=== PATIENT | male | born 1950 | race Caucasian/White ===

== ENCOUNTER 2016-05-11 07:52 | Emergency (ER) | payer MEDICARE ==
[~2016-05-11] VITALS: Ht 175.3 cm; Wt 104.3 kg
[2016-05-11 07:52] VITALS: BP 207/58; PULSE 59; RESP 20; TEMP 93.1; O2SAT 98
--- NOTE | 2016-05-11 07:52 | NUR ---
Placed in room 06 . Placed on cafeteria monitor, blood pressure machine and pulse oximeter. To gown for exam. Side rails up. Report given to Abundio.
--- NOTE | 2016-05-11 07:55 | NUR ---
ER at bedside examining patient.
--- NOTE | 2016-05-11 07:55 | NUR ---
BIB ACLS from home, c/o shortness of breath and chills. Pt has been to [facility] for treatment for bronchitis past 8 days. Pt cold, clammy. Per EMS was diaphoretic on scene. Taking clindamycin for MRSA wounds right foot. Pt has heel support right foot with ortho shoes states ambulatory at home. Wheezing noted bilat lungs. Denies chest pain, denies abd pain, abdomen distended no grimace with palpitation. Urinary incontince noted. Denies n/v/d
[2016-05-11] MEDS ORDERED: IPRATROPIUM BROM 0.5 MG/2.5 ML VIAL.NEB (ATROVENT) IH ONE (08:00)
[2016-05-11] MEDS ORDERED: ALBUTEROL SULFATE 0.083% 2.5 MG/3 ML VIAL.NEB IH ONE (08:00)
--- NOTE | 2016-05-11 08:05 | NUR ---
Pt moved to Room 2 for closer observation, call placed for Hoda hugger warming blankets, Lab at bedside.
--- NOTE | 2016-05-11 08:05 | NUR ---
93.1 rectal temp, pt placed on Hoda Warmer. Will continue to monitor
--- NOTE | 2016-05-11 08:10 | NUR ---
ABG drawn, Pt placed on breathing treatment via mask by RT
--- NOTE | 2016-05-11 08:15 | NUR ---
# 16 FR Sy catheter with use of sterile technique. Immediate return of 650 cc clear yellow urine noted. Bedside drainage bag placed below level of bladder. Urine sample collected and sent to lab. Pt tolerated procedure well. Patient unable to toilet self at this time.
[2016-05-11 08:22] LABS: BASOPHILS % (AUTO) 0.4 % (0.0-2.0); EOSINOPHILS # (AUTO) 0.2 K/uL (0.0-0.4); EOSINOPHILS % (AUTO) 2.8 % (0.0-4.0); HEMATOCRIT 35.6 % (36-54); HEMOGLOBIN 11.8 g/dL (14.0-18.0); LYMPHOCYTES # (AUTO) 1.5 K/uL (1.0-5.5); LYMPHOCYTES % (AUTO) 26.2 % (20.5-51.5); MEAN CORPUSCULAR HEMOGLOBIN 30 pg (27-31); MEAN CORPUSCULAR HGB CONC 33 % (32-36); MEAN CORPUSCULAR VOLUME 90 fL (79.0-98.0); MONOCYTES # (AUTO) 0.4 K/uL (0.0-1.0); MONOCYTES % (AUTO) 6.4 % (1.7-9.3); NEUTROPHILS # (AUTO) 3.5 K/uL (1.8-7.7); NEUTROPHILS % (AUTO) 64.2 % (40.0-70.0); PLATELET COUNT (AUTO) 321 K/uL (130-430); RED BLOOD CELL COUNT(AUTO) 3.97 MIL/uL (4.2-6.2); RED CELL DISTRIBUTION WIDTH 14.2 % (9.0-15.0); WHITE BLOOD COUNT (AUTO) 5.6 K/uL (4.8-10.8)
[2016-05-11 08:23] LABS: ABG TOTAL HEMOGLOBIN 12.1 G/dL (12.0-18.0); BLOOD GAS BASE EXCESS -5.4 mmol/L (-3.0-3.0); BLOOD GAS COHb% 0.2 % (0.5-1.5); BLOOD GAS PH 7.313 (7.350-7.450); BLOOD O2Hb% 94.5 % (94.0-97.0)
[2016-05-11 08:26] LABS: BILIRUBIN,URINE NEGATIVE (NEGATIVE); BLOOD, URINE NEGATIVE (NEGATIVE); CLARITY/URINE CLEAR (CLEAR); COLOR,URINE YELLOW (YELLOW); GLUCOSE,URINE NEGATIVE (NEGATIVE); KETONES,URINE NEGATIVE (NEGATIVE); LEUKOCYTE ESTERASE ,URINE NEGATIVE (NEGATIVE); NITRITE, URINE NEGATIVE (NEGATIVE); PH,URINE 5.5 (5.0-8.0); PROTEIN URINE 2+ (NEGATIVE); UROBILINOGEN,URINE 0.2 (0.2-1.0)
[2016-05-11 08:27] LABS: CALCIUM 9.4 mg/dL (8.4-11.0); CREATININE 2.9 mg/dL (0.55-1.30); POTASSIUM 3.6 mmol/L (3.5-5.1)
[2016-05-11 08:32] LABS: ALBUMIN 3.7 g/dL (3.4-4.8); TOTAL BILIRUBIN 0.3 mg/dL (0.0-1.0); TOTAL PROTEIN, SERUM 8.5 g/dL (6.4-8.3)
[2016-05-11 08:34] LABS: BACTERIA,URINE FEW /HPF (None Seen); FINE GRANULAR CASTS,URINE 0-3 /LPF (None Seen); RBC,URINE 0-3 /HPF (0-3)
--- NOTE | 2016-05-11 08:42 | NUR ---
PCxR taken at bedside
[2016-05-11] MEDS ORDERED: FURO-149 PO (08:48)
[2016-05-11] MEDS ORDERED: GLIP5TAB76 PO (08:48)
[2016-05-11] MEDS ORDERED: HYDR100T25 PO (08:48)
[2016-05-11] MEDS ORDERED: MIRT15TA7 PO (08:48)
[2016-05-11] MEDS ORDERED: LOSA25TA3 PO (08:48)
[2016-05-11] MEDS ORDERED: HYDR-1189 PO (08:48)
[2016-05-11] MEDS ORDERED: NPH,100V SUBCUT ×2 (08:48)
[2016-05-11] MEDS ORDERED: FURO-150 PO (08:48)
[2016-05-11] MEDS ORDERED: AMOX-426 PO (08:48)
[2016-05-11] MEDS ORDERED: SILV50CR TP (08:48)
[2016-05-11] MEDS ORDERED: CLIN-77 PO (08:48)
[2016-05-11] MEDS ORDERED: FINA5TAB3 PO (08:48)
[2016-05-11] MEDS ORDERED: BRI.2% RIGHT EYE (08:48)
[2016-05-11] MEDS ORDERED: ISOS60TA4 PO (08:48)
[2016-05-11] MEDS ORDERED: SIMV20TA2 PO (08:48)
[2016-05-11] MEDS ORDERED: CAT.2 PO (08:48)
[2016-05-11] MEDS ORDERED: CLOP75TA2 PO (08:48)
[2016-05-11] MEDS ORDERED: CALC0.258 PO (08:48)
[2016-05-11] MEDS ORDERED: BENZ100C67 PO (08:48)
[2016-05-11] MEDS ORDERED: DORZ10DR10 RIGHT EYE (08:48)
[2016-05-11] MEDS ORDERED: PRO40 PO (08:48)
[2016-05-11] MEDS ORDERED: TAMS0.4C96 PO (08:48)
[2016-05-11] MEDS ORDERED: SERT100T PO (08:48)
--- NOTE | 2016-05-11 08:48 | NUR ---
Medication reconciliation completed with information provided by paperwork from [facility]. Any prior medication reconciliation on file was reviewed and corrected.
[2016-05-11] MEDS ORDERED: NACL 0.9% 1,000 ML IV ONE (09:15)
--- NOTE | 2016-05-11 09:24 | NUR ---
IVF infusing to Rt bicept with no s/sx of infiltration at this time
[2016-05-11 09:51] LABS: PROTHROMBIN TIME 10.7 SECS (9.5-12.5)
--- NOTE | 2016-05-11 10:10 | NUR ---
Patient to be transferred to [facility] ER. Is being transferred due to higher level of care. Receiving facility has accepting physician and available space. ER physician has signed transfer form. Patient or responsible alliance party has agreed to transfer and signed form. Patient belongings inventoried and will be sent with patient. Copy of nursing notes, lab reports, EKG, Physicians Orders and X-rays to be sent with patient. Report will be called to [phone] at receiving facility. Receiving physician is Dr. Verde. [facility] [place] ambulance service has been called for transfer. ETA is 1055.
--- NOTE | 2016-05-11 10:11 | NUR ---
Patient resting quietly. No acute distress noted. Vital signs within normal range.
--- NOTE | 2016-05-11 10:55 | NUR ---
Pt c/o nausea, MD notified
[2016-05-11] MEDS ORDERED: ONDANSETRON HCL 4 MG/2 ML VIAL IVP ONE (11:00)
--- NOTE | 2016-05-11 11:05 | NUR ---
Medicated with Zofran 4mg IVP per Dr. Cochran's orders for nausea.
[2016-05-11 11:16] VITALS: BP 146/72; PULSE 50; RESP 15; TEMP 96.5; O2SAT 95
--- NOTE | 2016-05-11 11:17 | NUR ---
Pt stable for transfer to [facility], ER. [facility] here to transport pt. IV rt bicept intact, IVF infusing with no s/x of infiltration. 20g IV LAC intact, no s/x of infiltration. Sy cath in place, 875mL discarded. Transfered EMS per ACLS protocol. No acute distress
== END 2016-05-11 11:16 | disposition short-term general hospital (02) ==
LOC: SED 07:52
DX: J45.909 Unspecified asthma, uncomplicated (principal); R68.0 Hypothermia, not associated with low environmental temperature; E87.2 Acidosis; I12.9 Hypertensive chronic kidney disease with stage 1 through stage 4 chronic kidney disease, or unspecified chronic kidney disease; N18.9 Chronic kidney disease, unspecified; E11.9 Type 2 diabetes mellitus without complications; Z86.73 Personal history of transient ischemic attack (TIA), and cerebral infarction without residual deficits; Z79.4 Long term (current) use of insulin; Z79.899 Other long term (current) drug therapy
CPT/HCPCS: 36415; 36600; 51702; 71010; 80053; 81000; 82803; 82962; 83605; 83880; 84484; 85025; 85610; 85730; 87040; 93005; 94640; 96361; 96374; 99285; J2405; J7030

== ENCOUNTER 2019-05-01 12:22 | Emergency (ER) | payer MEDICARE ==
[~2019-05-01] VITALS: Ht 160 cm; Wt 88.5 kg
[~2019-05-01 12:22] MED LIST: AMOX-426 PO; BENZ-16 PO; BRI.2% RIGHT EYE; CALC0.258 PO; CAT.2 PO; CLIN300C11 PO; CLOP75TA2 PO; DORZ10DR10 RIGHT EYE; FINA5TAB3 PO; FURO-149 PO; FURO-150 PO; GLIP-204 PO; HYDR-1189 PO; HYDR100T25 PO; ISOS60TA4 PO; LOSA25TA3 PO; MIRT15TA7 PO; NPH,100V SUBCUT; PRO40 PO; SERT100T PO; SILV50CR TP; SIMV20TA2 PO; TAMS0.4C96 PO
--- NOTE | 2019-05-01 12:25 | NUR ---
Patient to ER bed 06 to gown for evaluation. Side rails up.
--- NOTE | 2019-05-01 12:26 | NUR ---
Pt brought by ambulance , A&Ox4, pt presents to ER with R shoulder pain after trip and fall from wheelchair while standing , pt has Hx of CVA, skin pink and warm ,cap refill <3, VSS.
[2019-05-01] MEDS ORDERED: KETOROLAC TROMETHAMINE 60 MG/2 ML VIAL IM ONE (12:30)
--- NOTE | 2019-05-01 12:30 | NUR ---
ER at bedside examining patient.
[2019-05-01 12:35] VITALS: BP_SYST 169
--- NOTE | 2019-05-01 12:44 | NUR ---
PATIENT PRESENTS TO THE ER WITH HX OF TRIPPING OVER HIS OWN FEET AND FELL ONTO HIS RIGHT SIDE (CEMENT SURFACE) WITH TRAUMA TO RIGHT SHOULDER; NO LOC, NO OTHER TRAUMA, NO OTHER REMARKABLE S/S
--- NOTE | 2019-05-01 12:46 | NUR ---
PATIENT TO ER #6 AT 1214
--- NOTE | 2019-05-01 12:59 | NUR ---
Pt off the unit for CT
[2019-05-01] MEDS ORDERED: KETOROLAC TROMETHAMINE 30 MG VIAL IM ONE (13:00)
[2019-05-01 13:05] LABS: BASOPHILS # (AUTO) 0.1 K/uL (0.0-0.2); BASOPHILS % (AUTO) 0.3 % (0.0-2.0); EOSINOPHILS # (AUTO) 0.2 K/uL (0.0-0.4); EOSINOPHILS % (AUTO) 1.1 % (0.0-4.0); HEMATOCRIT 30.5 % (36-54); LYMPHOCYTES # (AUTO) 0.8 K/uL (1.0-5.5); LYMPHOCYTES % (AUTO) 5.3 % (20.5-51.5); MEAN CORPUSCULAR HEMOGLOBIN 30 pg (27-31); MEAN CORPUSCULAR HGB CONC 33 % (32-36); MEAN CORPUSCULAR VOLUME 92 fL (79.0-98.0); MONOCYTES # (AUTO) 0.5 K/uL (0.0-1.0); NEUTROPHILS # (AUTO) 14.1 K/uL (1.8-7.7); NEUTROPHILS % (AUTO) 90.3 % (40.0-70.0); PLATELET COUNT (AUTO) 447 K/uL (130-430); RED BLOOD CELL COUNT(AUTO) 3.31 MIL/uL (4.2-6.2); RED CELL DISTRIBUTION WIDTH 14.5 % (9.0-15.0); WHITE BLOOD COUNT (AUTO) 15.6 K/uL (4.8-10.8)
[2019-05-01 13:24] LABS: CALCIUM 10.6 mg/dL (8.4-11.0); CREATININE 3.45 mg/dL (0.55-1.30); POTASSIUM 3.7 mmol/L (3.5-5.1)
[2019-05-01 13:27] LABS: INR 1.1 (0.80-1.20); PROTHROMBIN TIME 10.8 SECS (9.5-12.5)
--- NOTE | 2019-05-01 13:30 | NUR ---
TO ER BED 6 FROM RADIOLOGY
[2019-05-01 13:33] LABS: ALBUMIN 2.9 g/dL (3.4-4.8); TOTAL BILIRUBIN 0.4 mg/dL (0.0-1.0)
[2019-05-01] MEDS ORDERED: KETOROLAC TROMETHAMINE 30 MG VIAL ONE (13:50)
--- NOTE | 2019-05-01 14:55 | NUR ---
REASSESSMENT BY ERMD; PATIENT'S SOCIAL DIRECTOR STATES SHE CANNOT MANAGE PATIENT AT HOME; ACI GIVEN AND CAREGIVER INDICATED FULL UNDERSTANDING; DISCHARGE POSTPONED PENDING CASE MANAGMENT EVALUATION
--- NOTE | 2019-05-01 16:00 | NUR ---
# 20 gauge angiocath placed to right Arm. Use of asceptic technique. Opsite placed over site. Blood return noted. Blood for lab drawn from site. Flushed with 10 cc of normal saline. No evidence of infiltration noted. Patient tolerated well.
--- NOTE | 2019-05-01 16:15 | NUR ---
Patient given ER lunch
--- NOTE | 2019-05-01 16:44 | NUR ---
Patient to be transferred to [facility]. Is being transferred due to higher level of care. Receiving facility has accepting physician and available space. ER physician has signed transfer form. Patient or responsible constitution party has agreed to transfer and signed form. Patient belongings inventoried and will be sent with patient. Copy of nursing notes, lab reports, EKG, Physicians Orders and X-rays to be sent with patient. Report called to at receiving facility. Receiving physician is . [facility] ambulance service has been called for transfer.
[2019-05-01 16:45] VITALS: BP_SYST 143
== END 2019-05-01 16:45 | disposition home or self-care (01) ==
LOC: SED 12:22
DX: S13.4XXA Sprain of ligaments of cervical spine, initial encounter (principal); S43.401A Unspecified sprain of right shoulder joint, initial encounter; S63.521A Sprain of radiocarpal joint of right wrist, initial encounter; S00.93XA Contusion of unspecified part of head, initial encounter; E11.9 Type 2 diabetes mellitus without complications; I10 Essential (primary) hypertension; Z86.79 Personal history of other diseases of the circulatory system; Z86.73 Personal history of transient ischemic attack (TIA), and cerebral infarction without residual deficits; W01.0XXA Fall on same level from slipping, tripping and stumbling without subsequent striking against object, initial encounter; Y93.89 Activity, other specified; Y92.89 Other specified places as the place of occurrence of the external cause; Y99.8 Other external cause status
CPT/HCPCS: 36415; 70450; 71045; 72125; 73030; 73110; 80053; 84484; 85025; 85610; 85730; 96372; 99285; J1885; 99284

== ENCOUNTER 2022-02-04 06:51 | Inpatient (IN) | payer MEDICARE ==
[2022-02-04] VITALS (17 sets, daily range): BP systolic 77–129
[~2022-02-04] VITALS: Ht 160 cm; Wt 76.2 kg
[~2022-02-04 06:51] MED LIST changes: +CLIN-142 PO; -CLIN300C11 PO; -HYDR-1189 PO; +HYDR-3919 PO; -ISOS60TA4 PO; +ISOS60TA71 PO; +MIRT-91 PO; -MIRT15TA7 PO; +SIMV-343 PO; -SIMV20TA2 PO
[2022-02-04] MEDS ORDERED: NS 250 ML IV ONE (07:00)
--- NOTE | 2022-02-04 07:00 | NUR ---
ER at bedside examining patient.
--- NOTE | 2022-02-04 07:00 | NUR ---
Placed in room 2 . Placed on senior visual designer, blood pressure machine and pulse oximeter. To gown for exam. Side rails up. Report given to SULAIMAN ARREOLA(REG).
[2022-02-04] MEDS ORDERED: ACET-73 PO (07:23)
[2022-02-04] MEDS ORDERED: NOREPINEPHRINE 4 MG/4 ML VIAL IV ONE (07:25)
[2022-02-04] MEDS ORDERED: NOREPINEPHRINE BITARTRATE 4 MG in NS 246 ML IV ONE (07:30)
[2022-02-04 07:44] LABS: BASOPHILS % (AUTO) 0.3 % (0.0-2.0); EOSINOPHILS # (AUTO) 0.1 K/uL (0.0-0.4); EOSINOPHILS % (AUTO) 0.8 % (0.0-4.0); HEMATOCRIT 32.4 % (36-54); HEMOGLOBIN 11.1 g/dL (14.0-18.0); LYMPHOCYTES # (AUTO) 1.3 K/uL (1.0-5.5); MEAN CORPUSCULAR HEMOGLOBIN 33 pg (27-31); MEAN CORPUSCULAR HGB CONC 34 % (32-36); MEAN CORPUSCULAR VOLUME 95 fL (79.0-98.0); MONOCYTES # (AUTO) 0.4 K/uL (0.0-1.0); MONOCYTES % (AUTO) 4.6 % (1.7-9.3); NEUTROPHILS # (AUTO) 7.3 K/uL (1.8-7.7); NEUTROPHILS % (AUTO) 80.3 % (40.0-70.0); PLATELET COUNT (AUTO) 319 K/uL (130-430); RED BLOOD CELL COUNT(AUTO) 3.42 MIL/uL (4.2-6.2); RED CELL DISTRIBUTION WIDTH 14.6 % (9.0-15.0); WHITE BLOOD COUNT (AUTO) 9.1 K/uL (4.8-10.8)
[2022-02-04] MEDS ORDERED: ISOS60TA71 PO (07:46)
[2022-02-04] MEDS ORDERED: SEVE800T8 PO (07:46)
[2022-02-04] MEDS ORDERED: SERT-131 PO (07:46)
[2022-02-04] MEDS ORDERED: HYDR100T25 PO (07:46)
[2022-02-04] MEDS ORDERED: SIMV-343 PO (07:46)
[2022-02-04] MEDS ORDERED: POLY17PO4 PO (07:46)
[2022-02-04] MEDS ORDERED: NEU300 PO (07:46)
[2022-02-04] MEDS ORDERED: FINA5TAB3 PO (07:46)
[2022-02-04] MEDS ORDERED: MIRT-91 PO (07:46)
[2022-02-04] MEDS ORDERED: BRI.2% RIGHT EYE (07:46)
[2022-02-04] MEDS ORDERED: PANT20TA2 PO (07:46)
[2022-02-04] MEDS ORDERED: ALBMDI INH (07:46)
[2022-02-04] MEDS ORDERED: TERA5CAP4 PO (07:46)
[2022-02-04] MEDS ORDERED: CETI10CA11 PO (07:46)
[2022-02-04] MEDS ORDERED: CALC0.258 PO (07:46)
[2022-02-04] MEDS ORDERED: FLUT16SP16 NS (07:46)
[2022-02-04] MEDS ORDERED: HYT1 PO (07:46)
[2022-02-04] MEDS ORDERED: CLOP75TA32 PO (07:46)
[2022-02-04] MEDS ORDERED: LACT1TAB14 PO (07:46)
[2022-02-04] MEDS ORDERED: CAT1PAT TD (07:46)
[2022-02-04] MEDS ORDERED: CALC0.253 (07:46)
[2022-02-04] MEDS ORDERED: NOR10 PO (07:46)
[2022-02-04] MEDS ORDERED: DOCU250C14 PO (07:46)
[2022-02-04 07:51] LABS: ANION GAP 8 (5-15); CALCIUM 8.2 mg/dL (8.4-11.0); CHLORIDE 97 mmol/L (98-107); GLUCOSE 289 mg/dL (70-99); UREA NITROGEN, BLOOD 32 mg/dL (8-21)
[2022-02-04 07:57] LABS: GFR AFRICAN AMERICAN 15 mL/min (>90)
[2022-02-04 07:58] LABS: ALANINE AMINOTRANSFERASE 17 U/L (12-78); ALBUMIN 3.2 g/dL (3.4-4.8); ASPARTATE AMINOTRANSFERASE 13 U/L (10-37); LIPASE 620 U/L (73-393); PHOSPHORUS 5.5 mg/dL (2.7-4.5); TOTAL BILIRUBIN 0.3 mg/dL (0.0-1.0)
[2022-02-04 08:13] LABS: PROTHROMBIN TIME 10.4 SECS (9.5-12.5)
--- NOTE | 2022-02-04 08:21 | NUR ---
MED REC COMPLETED. MRSA, COVID OBTAINED AND TAKEN TO LAB.
--- NOTE | 2022-02-04 08:49 | NUR ---
Dr. Ba, [place] [facility] Doc, called back to speak to Dr. Franco regarding pt status.
--- NOTE | 2022-02-04 08:52 | NUR ---
Dima Mcintosh and Dr. Franco agreed to admit pt and will follow up. Pt will be admitted to international accounting manager hospitalist, Dr. Isabel.
--- NOTE | 2022-02-04 10:27 | NUR ---
received admit orders for pt from Dr Isabel, via telephone. read back and verbalized correct medication orders.
--- NOTE | 2022-02-04 11:17 | NUR ---
Admit bed requested Patient will be admitted to care of . Admitted to unit. Diagnosis Inpatient (Yes or No) Observation (Yes or No) Orientation concerns or request close to nursing station (Yes or No) Covid Status On vent or bipap Isolation requirements Needs a sitter From Home (Yes or if No enter name of facility) Requires Dialysis (Yes or No) Med Rec Completed (Yes of No)
--- NOTE | 2022-02-04 11:38 | NUR ---
CALLED MAXWELL TARANGO CHARGE FOR ICU AND MADE HER AWARE PT NEEDS TO TRANSFER, SUKHDEEP STATED PT IS TO GO TO BED 8.
--- NOTE | 2022-02-04 12:21 | NUR ---
pt was transfered to ICU bed 8 via bed. pt was taken by primary nurse and emt. no distress noted. brother at bedside.
[2022-02-04] MEDS: NACL 0.9% 1,000 ML IV SCH (14:38)
--- NOTE | 2022-02-04 14:59 | NUR ---
Called Dr. Wolff with a consult,spoke with Yvette from the exchange
--- NOTE | 2022-02-04 15:05 | NUR ---
Called Dr. Guerra with a consult,spoke with Yvette from the exchange
[2022-02-04] MEDS ORDERED: NOREPINEPHRINE BITARTRATE 4 MG in NS 246 ML IV PRN (16:15)
[2022-02-04] MEDS: ALBUMIN HUMAN 25% 50 ML IV SCH ×2 (17:12→21:58)
--- NOTE | 2022-02-04 19:20 | NUR ---
Opening notes Received report from endorsing morning shift RN Jules for continuity of care. Patient is lying in bed with IVF NS @ 50 mL/hr. Patient's sister (Shwetha- ) is at the bedside. Patient's vital signs blood pressure 66/46, heart rate 75, respirations 24, and SPO2 97% on 2 L nasal cannula. Bed is locked and in lowest position, call light button within reach, fall and safety precautions is in place.
[2022-02-05] VITALS (24 sets, daily range): BP systolic 104–155
[2022-02-05] MEDS: ALBUMIN HUMAN 25% 50 ML IV SCH (03:51)
[2022-02-05] MEDS: NACL 0.9% 1,000 ML IV SCH (06:19)
[2022-02-05] MEDS: INSULIN REGULAR, HUMAN 100 UNITS/ML, 3 ML VIAL (humuLIN R) SUBCUT PRN ×3 (06:39→19:30)
[2022-02-05 07:52] LABS: BASOPHILS # (AUTO) 0.1 K/uL (0.0-0.2); BASOPHILS % (AUTO) 0.6 % (0.0-2.0); EOSINOPHILS # (AUTO) 0.2 K/uL (0.0-0.4); EOSINOPHILS % (AUTO) 2.1 % (0.0-4.0); HEMATOCRIT 30.3 % (36-54); HEMOGLOBIN 10.3 g/dL (14.0-18.0); LYMPHOCYTES # (AUTO) 1.6 K/uL (1.0-5.5); LYMPHOCYTES % (AUTO) 18.5 % (20.5-51.5); MEAN CORPUSCULAR HEMOGLOBIN 33 pg (27-31); MEAN CORPUSCULAR HGB CONC 34 % (32-36); MEAN CORPUSCULAR VOLUME 96 fL (79.0-98.0); MONOCYTES # (AUTO) 0.6 K/uL (0.0-1.0); MONOCYTES % (AUTO) 7.2 % (1.7-9.3); NEUTROPHILS % (AUTO) 71.6 % (40.0-70.0); PLATELET COUNT (AUTO) 298 K/uL (130-430); RED BLOOD CELL COUNT(AUTO) 3.17 MIL/uL (4.2-6.2); RED CELL DISTRIBUTION WIDTH 14.4 % (9.0-15.0); WHITE BLOOD COUNT (AUTO) 8.4 K/uL (4.8-10.8)
[2022-02-05] MEDS ORDERED: ACETAMINOPHEN 500 MG TABLET PO PRN ×2 (08:00→08:15)
[2022-02-05] MEDS ORDERED: ALBUTEROL MDI INHALATION 8 GM INH INH PRN (08:00)
--- NOTE | 2022-02-05 08:00 | NUR ---
Received patient in report from [facility] RN. Patient sleeping at this time. Patient's sister, Stefanie, caregiver came to visit and is at patient's bedside. Patient has stable VS. Turned patient and advised that breakfast has arrived. Patient seemsed pleased with breakfast and ate all presented to him.Patient has no requests at this time.
[2022-02-05 08:15] LABS: ALBUMIN 3.5 g/dL (3.4-4.8); CALCIUM 8.4 mg/dL (8.4-11.0); CREATININE 6.14 mg/dL (0.55-1.30); PHOSPHORUS 6.3 mg/dL (2.7-4.5); TOTAL BILIRUBIN 0.3 mg/dL (0.0-1.0)
[2022-02-05] MEDS ORDERED: ALBUTEROL SULFATE 0.083% 2.5 MG/3 ML VIAL.NEB INH PRN (08:30)
[2022-02-05] MEDS: FLUTICASONE PROPIONATE 50 mCg/SPRAY 16 GM NS SCH (09:00)
[2022-02-05] MEDS: DORZOLAMIDE HCL/TIMOLOL MAL. 10 ML EYE DROPS (COSOPT) RIGHT EYE SCH ×2 (09:00→21:26)
[2022-02-05] MEDS: BRIMONIDINE TARTRATE 0.2% 5 mL EYE DROPS RIGHT EYE SCH ×2 (09:00→21:26)
[2022-02-05] MEDS: FINASTERIDE 5 MG TABLET (PROSCAR) PO SCH (09:00)
[2022-02-05] MEDS ORDERED: ENOXAPARIN SODIUM 40 MG/0.4 ML SYRINGE SUBCUT SCH (09:00)
[2022-02-05] MEDS: DOCUSATE SODIUM 250 MG CAPSULE PO SCH (09:42)
[2022-02-05] MEDS: SIMVASTATIN 20 MG TABLET PO SCH (09:43)
[2022-02-05] MEDS: SEVELAMER CARBONATE 800 MG TABLET PO SCH ×3 (09:44→18:33)
[2022-02-05] MEDS: CLOPIDOGREL BISULFATE 75 MG TABLET PO SCH (09:45)
[2022-02-05] MEDS: calcitrioL 0.25 MCG CAPSULE PO SCH (09:45)
[2022-02-05] MEDS: ENOXAPARIN SODIUM 30 MG/0.3 ML SYRINGE SUBCUT SCH (09:46)
--- NOTE | 2022-02-05 10:00 | NUR ---
Patient had medications and is currently sleeping again. Visitor is at bedside. No discomfort noted at this time.
--- NOTE | 2022-02-05 15:46 | NUR ---
Patient is again sleeping after lunch. Patient ate all lunch, spoke with sister and then brother came to visit for two hours. Patient without issues at this time.
--- NOTE | 2022-02-05 15:50 | NUR ---
Received call from lab stating that stool is too formed for CDIFF test per protocol. Advised lab that we will send again if stool is loose or watery, per protocol.
--- NOTE | 2022-02-05 19:57 | NUR ---
End of Shift Summary: Patient has maintained well throughout the shift but continues to have difficulty coming off levophed. Patient only needs a slight fraction of medication, the lowest amount but once it is stopped for more that 2 hours map and BP decrease. Patient remains on levophed at 0.01 mg/min at change of shift and currently has no issues as report is given to Krishna at bedside report.
[2022-02-05] MEDS ORDERED: SERTRALINE HCL 50 MG TABLET PO SCH (21:00)
[2022-02-05] MEDS: GABAPENTIN 300 MG CAPSULE PO SCH (21:23)
[2022-02-05] MEDS: MIDODRINE HCL 5 MG TABLET (PROAMATINE) PO SCH ×2 (21:24→22:19)
[2022-02-05] MEDS: MIRTAZAPINE 15 MG TABLET PO SCH (21:24)
[2022-02-05] MEDS ORDERED: MIDODRINE HCL 5 MG TABLET (PROAMATINE) ONE (23:22)
[2022-02-06] VITALS (20 sets, daily range): BP systolic 109–171
[2022-02-06] MEDS: NACL 0.9% 1,000 ML IV SCH ×2 (02:45→21:56)
[2022-02-06 06:01] LABS: BASOPHILS # (AUTO) 0.1 K/uL (0.0-0.2); BASOPHILS % (AUTO) 0.5 % (0.0-2.0); EOSINOPHILS # (AUTO) 0.2 K/uL (0.0-0.4); EOSINOPHILS % (AUTO) 2.3 % (0.0-4.0); HEMOGLOBIN 10.3 g/dL (14.0-18.0); LYMPHOCYTES # (AUTO) 1.1 K/uL (1.0-5.5); LYMPHOCYTES % (AUTO) 10.2 % (20.5-51.5); MEAN CORPUSCULAR HEMOGLOBIN 33 pg (27-31); MEAN CORPUSCULAR HGB CONC 35 % (32-36); MEAN CORPUSCULAR VOLUME 96 fL (79.0-98.0); MONOCYTES # (AUTO) 0.6 K/uL (0.0-1.0); MONOCYTES % (AUTO) 5.2 % (1.7-9.3); NEUTROPHILS # (AUTO) 8.8 K/uL (1.8-7.7); NEUTROPHILS % (AUTO) 81.8 % (40.0-70.0); PLATELET COUNT (AUTO) 290 K/uL (130-430); RED BLOOD CELL COUNT(AUTO) 3.12 MIL/uL (4.2-6.2); RED CELL DISTRIBUTION WIDTH 14.2 % (9.0-15.0); WHITE BLOOD COUNT (AUTO) 10.7 K/uL (4.8-10.8)
[2022-02-06 06:46] LABS: ALBUMIN 3.2 g/dL (3.4-4.8); CALCIUM 8.5 mg/dL (8.4-11.0); CREATININE 7.08 mg/dL (0.55-1.30); THYROID STIMULATING HORMONE 1.26 uIu/mL (0.36-3.74); TOTAL BILIRUBIN 0.2 mg/dL (0.0-1.0)
[2022-02-06] MEDS: ENOXAPARIN SODIUM 30 MG/0.3 ML SYRINGE SUBCUT SCH (08:03)
[2022-02-06] MEDS: calcitrioL 0.25 MCG CAPSULE PO SCH (08:04)
[2022-02-06] MEDS: SIMVASTATIN 20 MG TABLET PO SCH (08:04)
[2022-02-06] MEDS: FLUTICASONE PROPIONATE 50 mCg/SPRAY 16 GM NS SCH (08:04)
[2022-02-06] MEDS: DOCUSATE SODIUM 250 MG CAPSULE PO SCH (08:04)
[2022-02-06] MEDS: SEVELAMER CARBONATE 800 MG TABLET PO SCH ×3 (08:04→17:35)
[2022-02-06] MEDS: CLOPIDOGREL BISULFATE 75 MG TABLET PO SCH (08:04)
[2022-02-06] MEDS: FINASTERIDE 5 MG TABLET (PROSCAR) PO SCH (08:05)
[2022-02-06] MEDS: MIDODRINE HCL 5 MG TABLET (PROAMATINE) PO SCH ×3 (08:07→20:29)
[2022-02-06] MEDS ORDERED: ONDANSETRON HCL 4 MG/2 ML VIAL IVP PRN (08:30)
[2022-02-06] MEDS: BRIMONIDINE TARTRATE 0.2% 5 mL EYE DROPS RIGHT EYE SCH ×2 (08:44→20:58)
[2022-02-06] MEDS: DORZOLAMIDE HCL/TIMOLOL MAL. 10 ML EYE DROPS (COSOPT) RIGHT EYE SCH ×2 (08:44→20:58)
--- NOTE | 2022-02-06 08:44 | NUR ---
Jordan.I. PT COMPLAINED OF FEELING NAUSEOUS, SPOKE TO DR PARNELL, NEW ORDERS RECEIVED. EMESIS BASIN WAS PROVIDED. PT HAD SMALL AMOUNT OF EMESIS. ZOFRAN 4 MG IVP GIVEN.
[2022-02-06] MEDS ORDERED: PANTOPRAZOLE SODIUM 40 MG TAB PO SCH (09:00)
--- NOTE | 2022-02-06 11:32 | NUR ---
Discharge Planning: DCP faxed pt clinicals to [facility]#[phone].
[2022-02-06] MEDS: INSULIN REGULAR, HUMAN 100 UNITS/ML, 3 ML VIAL (humuLIN R) SUBCUT PRN ×2 (11:34→21:20)
--- NOTE | 2022-02-06 14:10 | NUR ---
RECEIVED SBAR REPORT FROM ANDRIA ERAZO RN PATIENT WILL BE HERE SHORTLY
--- NOTE | 2022-02-06 14:25 | NUR ---
TO [facility] TRANSFERRED PT TO ROOM 110-B, REPORT GIVEN TO ABE Becker RN.
--- NOTE | 2022-02-06 14:30 | NUR ---
PATIENT IN ROOM 110 FIRST CONTACT , NO DISTRESS 0/10 PAIN BED AT LOW POSITION CALL LIGHT IN REACH TELE BOX IN POSITION, PICC TO LEFT UPPER ARM CLEAN DRY INTACT WILL CONT TO MONITOR PATIENT.
--- NOTE | 2022-02-06 17:15 | NUR ---
[facility] CALLED, THEY HAVE A ROOM FOR PATIENT JUST WAITING ON EXCEPTING MD. PATIENT SIGNED TRANSFER PAPER TO [facility], FAMILY AT BEDSIDE (BROTHER) WILL CONT TO MONITOR PATIENT AND CONT WITH SAFETY CHECKS
--- NOTE | 2022-02-06 19:15 | NUR ---
Received report from AM shift RN, and assumed patient care.
--- NOTE | 2022-02-06 20:00 | NUR ---
Informed patient about the transfer over to [place], patient understands teaching and will reinforce if needed throughout the shift.
[2022-02-06] MEDS: MIRTAZAPINE 15 MG TABLET PO SCH (20:58)
[2022-02-06] MEDS: GABAPENTIN 300 MG CAPSULE PO SCH (20:58)
[2022-02-06] MEDS ORDERED: SERTRALINE HCL 50 MG TABLET PO SCH (21:00)
--- NOTE | 2022-02-06 22:03 | NUR ---
Gave report to MAXWELL Grewal from [facility], no further questions noted at the moment and will reinforce if needed throughout the shift. Ambulance is at bedside, and is ready to take patient to transfer to [place]. Informed patient about the transfer, and has no questions noted about the discharge information. Will reinforce if needed throughout the shift. Per patient, he will instruct family members about the transfer over to different hospital, no further questions or complications noted at the moment. Patient was successfully given the discharge papers, and instructions, and was on gurney to transfer out. park naturalist is aware.
== END 2022-02-06 22:36 | disposition short-term general hospital (02) | DRG 314 ==
LOC: SED 06:51 → SIC 10:43 → STU 02-06 15:27
PROVIDERS: ADMIT Family Medicine; ATTEND Family Medicine
DX: I95.9 Hypotension, unspecified (principal); N18.6 End stage renal disease; I12.0 Hypertensive chronic kidney disease with stage 5 chronic kidney disease or end stage renal disease; I69.354 Hemiplegia and hemiparesis following cerebral infarction affecting left non-dominant side; Z20.822 Contact with and (suspected) exposure to COVID-19; E78.5 Hyperlipidemia, unspecified; E11.22 Type 2 diabetes mellitus with diabetic chronic kidney disease; D63.1 Anemia in chronic kidney disease; E86.0 Dehydration; Z88.6 Allergy status to analgesic agent; Z79.899 Other long term (current) drug therapy; Z79.1 Long term (current) use of non-steroidal anti-inflammatories (NSAID); Z79.4 Long term (current) use of insulin; Z79.84 Long term (current) use of oral hypoglycemic drugs
CPT/HCPCS: 36415; 71045; 80053; 80061; 82962; 83605; 83690; 83735; 83880; 84100; 84443; 84484; 85025; 85610-TC; 85730-TC; 87040; 93005; 93306; 96365; 99285; C1751; J1650; J1815; J2405; J7030; J7050; J7060; P9046

== ENCOUNTER 2023-11-01 18:26 | Emergency (ER) | payer MEDICARE ==
[~2023-11-01] VITALS: Ht 160 cm; Wt 75.7 kg
[~2023-11-01 18:26] MED LIST changes: +ACET-73 PO; +ALBMDI INH; -AMOX-426 PO; -BENZ-16 PO; +CAT1PAT TD; +CEFU250T85 PO; +CETI10CA11 PO; -CLIN-142 PO; -CLOP75TA2 PO; +CLOP75TA32 PO; +DOCU250C14 PO; +FINA-37 PO; -FINA5TAB3 PO; +FLUT16SP16 NS; +HYDR100T13 PO; -HYDR100T25 PO; +HYT1 PO; +LACT1TAB14 PO; +LOSA-412 PO; -LOSA25TA3 PO; +NEU300 PO; +NOR10 PO; +PANT20TA2 PO; +POLY17PO4 PO; +SERT-131 PO; -SERT100T PO; +SEVE800T8 PO
[2023-11-01 18:34] VITALS: BP_SYST 142; PULSE 74; RESP 15; TEMP 98.4; O2SAT 88
[2023-11-01 20:29] LABS: BASOPHILS % (AUTO) 0.4 % (0.0-2.0); EOSINOPHILS # (AUTO) 0.3 K/uL (0.0-0.4); EOSINOPHILS % (AUTO) 2.8 % (0.0-4.0); HEMATOCRIT 33.1 % (36-54); HEMOGLOBIN 11.6 g/dL (14.0-18.0); LYMPHOCYTES # (AUTO) 1.4 K/uL (1.0-5.5); LYMPHOCYTES % (AUTO) 13.1 % (20.5-51.5); MEAN CORPUSCULAR HEMOGLOBIN 35 pg (27-31); MEAN CORPUSCULAR HGB CONC 35 % (32-36); MEAN CORPUSCULAR VOLUME 98 fL (79.0-98.0); MONOCYTES # (AUTO) 0.9 K/uL (0.0-1.0); MONOCYTES % (AUTO) 7.9 % (1.7-9.3); NEUTROPHILS # (AUTO) 8.2 K/uL (1.8-7.7); NEUTROPHILS % (AUTO) 75.8 % (40.0-70.0); PLATELET COUNT (AUTO) 280 K/uL (130-430); RED BLOOD CELL COUNT(AUTO) 3.36 MIL/uL (4.2-6.2); RED CELL DISTRIBUTION WIDTH 15.5 % (9.0-15.0); WHITE BLOOD COUNT (AUTO) 10.8 K/uL (4.8-10.8)
[2023-11-01 20:35] LABS: ANION GAP 7 (5-15); CALCIUM 9.1 mg/dL (8.4-11.0); CARBON DIOXIDE 35 mmol/L (23-29); CHLORIDE 95 mmol/L (98-107); CREATININE 4.39 mg/dL (0.55-1.30); GLUCOSE 236 mg/dL (74-106); POTASSIUM 4.2 mmol/L (3.5-5.1); SODIUM SERUM 137 mmol/L (136-145); UREA NITROGEN, BLOOD 32 mg/dL (8-21)
[2023-11-01] MEDS: MORPHINE 4 MG INJ. 4 MG/ML VIAL IVP ONE (21:10)
[2023-11-02] MEDS: MORPHINE 4 MG INJ. 4 MG/ML VIAL IVP ONE (01:06)
[2023-11-02 02:40] VITALS: BP_SYST 166; PULSE 65; RESP 18; TEMP 97.5; O2SAT 96
== END 2023-11-02 02:15 | disposition short-term general hospital (02) ==
LOC: SED 18:26
DX: M25.552 Pain in left hip (principal); M25.562 Pain in left knee; I12.9 Hypertensive chronic kidney disease with stage 1 through stage 4 chronic kidney disease, or unspecified chronic kidney disease; E11.22 Type 2 diabetes mellitus with diabetic chronic kidney disease; N18.9 Chronic kidney disease, unspecified; Z98.890 Other specified postprocedural states; Z79.899 Other long term (current) drug therapy; Z79.2 Long term (current) use of antibiotics; W01.0XXA Fall on same level from slipping, tripping and stumbling without subsequent striking against object, initial encounter; Y93.89 Activity, other specified; Y92.89 Other specified places as the place of occurrence of the external cause; Y99.8 Other external cause status
CPT/HCPCS: 99285; 96374; 71045; 80048; 85025; 36415; 73502; 73564; 82948; 96376; J2270 ×2

== ENCOUNTER 2023-11-24 16:34 | Emergency (ER) | payer MEDICARE ==
[~2023-11-24] VITALS: Ht 160 cm; Wt 78.9 kg
[2023-11-24 16:38] VITALS: BP_SYST 171; PULSE 60; RESP 18; TEMP 97; O2SAT 93
[2023-11-24 17:07] LABS: BASOPHILS # (AUTO) 0.1 K/uL (0.0-0.2); BASOPHILS % (AUTO) 0.7 % (0.0-2.0); EOSINOPHILS # (AUTO) 0.3 K/uL (0.0-0.4); EOSINOPHILS % (AUTO) 3.2 % (0.0-4.0); HEMATOCRIT 32.6 % (36-54); HEMOGLOBIN 11.2 g/dL (14.0-18.0); LYMPHOCYTES # (AUTO) 2.1 K/uL (1.0-5.5); LYMPHOCYTES % (AUTO) 21.5 % (20.5-51.5); MEAN CORPUSCULAR HEMOGLOBIN 34 pg (27-31); MEAN CORPUSCULAR HGB CONC 35 % (32-36); MEAN CORPUSCULAR VOLUME 98 fL (79.0-98.0); MONOCYTES # (AUTO) 0.8 K/uL (0.0-1.0); MONOCYTES % (AUTO) 8.2 % (1.7-9.3); NEUTROPHILS # (AUTO) 6.5 K/uL (1.8-7.7); NEUTROPHILS % (AUTO) 66.4 % (40.0-70.0); PLATELET COUNT (AUTO) 341 K/uL (130-430); RED BLOOD CELL COUNT(AUTO) 3.31 MIL/uL (4.2-6.2); RED CELL DISTRIBUTION WIDTH 14.9 % (9.0-15.0); WHITE BLOOD COUNT (AUTO) 9.8 K/uL (4.8-10.8)
[2023-11-24 17:29] LABS: ALANINE AMINOTRANSFERASE 25 U/L (12-78); ALBUMIN 3.1 g/dL (3.4-4.8); ANION GAP 5 (5-15); ASPARTATE AMINOTRANSFERASE 28 U/L (10-37); CALCIUM 8.7 mg/dL (8.4-11.0); CARBON DIOXIDE 36 mmol/L (23-29); CHLORIDE 98 mmol/L (98-107); CREATININE 4.88 mg/dL (0.55-1.30); GLUCOSE 166 mg/dL (74-106); POTASSIUM 4.1 mmol/L (3.5-5.1); SODIUM SERUM 139 mmol/L (136-145); TOTAL BILIRUBIN 0.3 mg/dL (0.0-1.0); TOTAL PROTEIN, SERUM 7.2 g/dL (6.4-8.3); UREA NITROGEN, BLOOD 37 mg/dL (8-21)
[2023-11-24 17:31] LABS: BILIRUBIN,DIRECT 0.1 mg/dL (0.0-0.3); CREATINE KINASE, TOTAL 46 U/L (39-308)
[2023-11-24 18:07] LABS: PROTHROMBIN TIME 10.4 SECS (9.5-12.5)
[2023-11-24] MEDS ORDERED: MIDO10TA PO (18:50)
[2023-11-24 21:00] VITALS: BP_SYST 134; PULSE 70; RESP 21; TEMP 97.7; O2SAT 92
== END 2023-11-24 21:00 | disposition home or self-care (01) ==
LOC: SED 16:34
DX: I13.2 Hypertensive heart and chronic kidney disease with heart failure and with stage 5 chronic kidney disease, or end stage renal disease (principal); E11.22 Type 2 diabetes mellitus with diabetic chronic kidney disease; N18.6 End stage renal disease; I50.9 Heart failure, unspecified; Z99.2 Dependence on renal dialysis; R53.1 Weakness; K21.9 Gastro-esophageal reflux disease without esophagitis; Z79.4 Long term (current) use of insulin; Z79.899 Other long term (current) drug therapy; Z79.2 Long term (current) use of antibiotics
CPT/HCPCS: 36415; 71045; 80048; 80076; 82550; 84484; 85025; 85610; 85730; 93005; 99285